=== PATIENT | female | born 1990 | race Caucasian/White ===

== ENCOUNTER 2023-06-19 00:33 | Emergency (ER) | payer BC ==
[~2023-06-19] VITALS: Ht 157.5 cm; Wt 65.8 kg
[2023-06-19] MEDS ORDERED: KETOROLAC TROMETHAMINE INJ 30 MG/ML VIAL ONE (00:51)
[2023-06-19] MEDS ORDERED: KETOROLAC TROMETHAMINE INJ 60 MG/2 ML VIAL IM ONE (01:00)
[2023-06-19 05:05] VITALS: BP 119/77; TEMP 98; O2SAT 98
== END 2023-06-19 05:09 | disposition home or self-care (01) ==
LOC: ER 00:35
DX: M79.671 Pain in right foot (principal)
CPT/HCPCS: 99283; 96372; 73630; J1885